=== PATIENT | male | born 1935 | race Caucasian/White ===

== ENCOUNTER 2019-07-06 10:53 | Day surgery (SDC) | payer MEDICARE, OTHER ==
[2019-07-06] MEDS ORDERED: SODIUM CHLORIDE 0.9% 1,000 ML IV ONE (11:14)
[2019-07-06] MEDS ORDERED: ALPRAZolam 0.25 MG TAB ONE (11:31)
[2019-07-06] MEDS ORDERED: ASPIRIN 81 MG ONE (11:31)
[2019-07-06] MEDS ORDERED: ASPIRIN 81 MG PO ONE (11:40)
[2019-07-06 11:41] LABS: HGB 13.5 gm/dL (13.0-17.5); MCH 31.1 pg (25.0-35.0); MCHC 33.8 g/dL (31.0-37.0); MCV 92.2 fL (80.0-100.0); Mean Platelet Volume 8.1; Platelet Count 123 k/uL (150-450); RBC 4.34 m/uL (4.30-5.90); RDW 15.6 % (11.5-15.5); WBC 6.2 k/uL (3.8-10.6)
[2019-07-06] MEDS ORDERED: ASPIRIN 325 MG TAB PO STA (11:41)
[2019-07-06] MEDS ORDERED: NITROGLYCERIN SL TABS 0.4 MG TAB SUBLINGUAL PRN ×2 (11:41→15:49)
[2019-07-06] MEDS ORDERED: SODIUM CHLORIDE 0.9% 1,000 ML in EMPTY BAG 1 BAG IV ONE (11:41)
[2019-07-06] MEDS ORDERED: ALPRAZolam 0.5 MG TAB PO PRN (11:41)
[2019-07-06] MEDS ORDERED: ALPRAZolam 0.25 MG TAB PO PRN (11:41)
[2019-07-06] MEDS ORDERED: ATORVASTATIN 80 MG TAB PO STA (11:41)
[2019-07-06 11:44] LABS: INR 0.9 (<1.2)
[2019-07-06 11:58] LABS: Potassium 4.8 mmol/L (3.5-5.1)
[2019-07-06] MEDS ORDERED: hydrALAZINE HCL 20 MG/ML 1 ML VIAL IVP STA (12:00)
[2019-07-06] MEDS ORDERED: hydrALAZINE HCL 20 MG/ML 1 ML VIAL IVP ONE (12:00)
[2019-07-06] MEDS ORDERED: LIDOCAINE URO-JET JELLY 2% 5 ML KIT ONE (12:26)
[2019-07-06] MEDS ORDERED: MIDAZOLAM (PF) 2 MG/2 ML VIAL IV ONE ×2 (14:35→15:13)
[2019-07-06] MEDS ORDERED: LIDOCAINE 1% INJ 10MG/ML (20 ML MDV) SQ ONE (14:35)
[2019-07-06] MEDS ORDERED: hydrALAZINE HCL 20 MG/ML 1 ML VIAL IV ONE (14:44)
[2019-07-06] MEDS ORDERED: BIVALIRUDIN 250 MG in SODIUM CHLORIDE 0.9% 36 ML IV ONE (14:53)
[2019-07-06] MEDS ORDERED: BIVALIRUDIN BOLUS 250 MG/50 ML IV ONE (14:53)
[2019-07-06] MEDS: NITROGLYCERIN 1000MCG/10ML SYRINGE INTRACORON ONE ×2 (15:00→15:36)
[2019-07-06] MEDS ORDERED: FUROSEMIDE 10 MG/ML 4 ML VIAL IV ONE (15:04)
[2019-07-06] MEDS ORDERED: MORPHINE SULFATE 4 MG/ML SYRINGE IV ONE (15:05)
[2019-07-06] MEDS ORDERED: HYDROmorphone 1 MG/ML 1 ML SYRINGE IVP ONE (15:05)
[2019-07-06] MEDS ORDERED: IOPAMIDOL-370 100ML BTL INJ ONE ×3 (15:05→15:45)
[2019-07-06] MEDS ORDERED: CLOPIDOGREL 75 MG TAB PO ONE (15:13)
[2019-07-06] MEDS ORDERED: ATROPINE SULFATE 0.1 MG/ML 10ML SYRINGE IV PRN (15:49)
[2019-07-06] MEDS ORDERED: RX INFO: IV CONTRAST WAS GIVEN 1 EACH MISC MISCELLANE PRN (15:49)
[2019-07-06] MEDS ORDERED: MAG HYDROX/AL HYDROX/SIMETH 30 ML CUP PO PRN (15:49)
[2019-07-06] MEDS ORDERED: ZOLPIDEM 5 MG TAB PO PRN (15:49)
[2019-07-06] MEDS ORDERED: SODIUM CHLORIDE 0.9% 1,000 ML IV SCH (16:00)
[2019-07-06] MEDS ORDERED: SECUKINUMAB SQ SCH (16:00)
[2019-07-06 17:35] VITALS: BMI 30.4
[2019-07-06 17:42] VITALS: RESP 18
[2019-07-06] MEDS: HYDROcodone/APAP 10-325MG 1 EACH TAB PO SCH (17:45)
[2019-07-06] MEDS: METOPROLOL TARTRATE 50 MG TAB PO SCH (20:37)
[2019-07-06] MEDS ORDERED: DOXAZOSIN 4 MG TAB PO SCH (21:00)
[2019-07-06] MEDS ORDERED: ATORVASTATIN 10 MG TAB PO SCH (21:00)
[2019-07-07] MEDS: HYDROcodone/APAP 10-325MG 1 EACH TAB PO SCH ×2 (00:47→08:26)
[2019-07-07 07:18] LABS: Basophils % (A) 0 %; Eosinophils # (A) 0.1 k/uL (0-0.7); Eosinophils % (A) 2 %; HCT 38.1 % (39.0-53.0); HGB 12.6 gm/dL (13.0-17.5); Lymphocytes # (A) 1.2 k/uL (1.0-4.8); Lymphocytes % (A) 16 %; MCH 30.6 pg (25.0-35.0); MCV 92.5 fL (80.0-100.0); Monocytes # (A) 0.8 k/uL (0-1.0); Monocytes % (A) 10 %; Neutrophils # (A) 5.1 k/uL (1.3-7.7); Neutrophils % (A) 70 %; Platelet Count 125 k/uL (150-450); RBC 4.12 m/uL (4.30-5.90); RDW 15.7 % (11.5-15.5); WBC 7.4 k/uL (3.8-10.6)
[2019-07-07 07:27] LABS: Calcium 8.6 mg/dL (8.4-10.2); Potassium 4.3 mmol/L (3.5-5.1)
[2019-07-07] MEDS ORDERED: PANTOPRAZOLE 40 MG TABLET PO SCH (07:30)
[2019-07-07 08:11] VITALS: BP 132/64; PULSE 64; TEMP 98.1
[2019-07-07] MEDS: METOPROLOL TARTRATE 50 MG TAB PO SCH (08:25)
[2019-07-07] MEDS ORDERED: CLOPIDOGREL 75 MG TAB PO SCH (09:00)
--- NOTE | 2019-07-07 09:13 | DS ---
DISCHARGE SUMMARY ADMISSION DATE: July 06, 2019. DISCHARGE DATE: July 07, 2019 BRIEF HISTORY: This is a pleasant 83-year-old gentleman who was experiencing symptoms of chest discomfort concerning for severe CAD. He is known to have CAD and prior stenting of the RCA. Yesterday, he underwent a heart catheterization and that revealed critical disease involving heavily calcified right coronary artery and critical disease involving the left circumflex coronary artery. He underwent successful stenting of the distal, mid, and proximal RCA with very complex procedure and by the end with an excellent angiographic results and reduction of stenosis from 99% to 0%. The procedure was performed from the right groin which is now soft and nontender and without any bruises. The patient is going to be discharged on dual anti-platelet therapy and I will follow up with the patient next week at [facility]. MMMATEUS / TWYLAN: [id number] /
--- NOTE | 2019-07-07 09:55 | CC ---
CARDIAC CATHETERIZATION REPORT DATE OF SERVICE: July 06, 2019 PERFORMING PHYSICIAN: Thierry Capps MD PROCEDURE PERFORMED: 1. Selective right and left coronary angiogram. 2. Left heart catheterization. 3. Successful stenting of the mid right coronary artery using 2.0 x 15 mm Sundar drug- eluting stent which was postdilated using 3.5 mm balloon with an excellent angiographic results and reduction of stenosis from 90% to 0%. 4. Successful stenting of the proximal right coronary artery using 3.0 x 23 mm Xience LISA with an excellent angiographic results and reduction of stenosis from 90% to 0%. 5. Successful stenting of the distal RCA using 3.5 x 8 mm Xience LISA with an excellent angiographic results and reduction of stenosis from 70% to 0%. INDICATIONS: This is an 83-year-old gentleman with history of coronary artery disease and prior stenting of the RCA, who was experiencing symptoms of chest discomfort concerning for severe underlying coronary artery disease. He was brought yesterday to undergo a heart catheterization and possible percutaneous coronary intervention. APPROACH: Right common femoral artery. COMPLICATION: None. LEVEL OF SEDATION: Moderate with sedation length of 73 minutes. PROCEDURE DESCRIPTION: After obtaining an informed consent, the patient was brought to cardiac [facility]. The right common femoral artery was cannulated using micropuncture technique. The micropuncture wire passed easily. Then I placed a 6-Turkish sheath. I did selective right and left coronary angiogram using JR4 and JL4 catheters. Subsequently I did intervene on the right coronary artery. Please see a separate paragraph for that. SELECTIVE CORONARY ANGIOGRAM: 1. The right coronary artery is a large caliber vessel and it is a dominant vessel. The proximal RCA has disease appeared to be in the range of 70% to 80%. The mid RCA has a critical lesion appeared to be in the range of 99.9%. The RCA distally is occluded and fills by collateral from the left coronary system. 2. The left main is angiographically normal. It bifurcates into left circumflex, which is nondominant circ and left anterior descending artery. 3. The left circumflex is a large caliber vessel it is a nondominant vessel. The proximal to mid circumflex has a lesion appeared to be in the range of 99%. The circ gives rise into an OM branch which seems to be normal. 4. The LAD: The LAD is a large caliber vessel and the LAD has mild diffuse disease only. The LAD gives rise into multiple small diagonal branches. The LAD gives collateral to the right coronary artery. PCI OF THE RCA: Anticoagulation was initiated using Angiomax. Using All Right guide, I engaged the right coronary artery. I did wire the RCA using a long whisper wire. I did balloon angioplasty of the RCA using 2.5 x 15 mm balloon. I attempted after that advancing 3.0 mm Xience LISA but the stent will not make the turn. At that point, I did wire the RCA using a cristal wire with a run-through wire. With that, I was unable to advance the stent. At that point, I dilated the RCA again using this time 3.5 mm balloon. Attempting advancing the stent was unsuccessful and at that point I was successful in advancing 2.0 x 15 mm Sundar drug-eluting stent where the stent was positioned in the mid RCA under fluoroscopy guidance and deployed after the cristal wire was withdrawn out. After that, in the proximal RCA, was able to advance the 3.0 x 28 mm Xience LISA where the stent again was positioned under fluoroscopy guidance and deployed under its nominal pressure. Subsequently, and in the mid RCA and distal RCA, there was a haziness with possible plaque rupture there and because of that, I decided to cover that with a stent so I placed 3.5 x 8 mm Xience ILSA. Finally I post dilated the 3 stents using 3.5 mm NC balloon. The final angiogram showed good angiographic results and the procedure was completed without any complication. CONCLUSION: 1. Critical disease involving the mid RCA. 2. Critical disease involving the proximal to mid LCX. 3. Mild disease involving the LAD system. 4. Successful stenting of the distal, mid, and proximal RCA as described above. POSTPROCEDURE MANAGEMENT: 1. Dual anti-platelet therapy. Unfortunately, the patient is taking Coumadin and because of that, he will be on Plavix as well as Coumadin. 2. Aggressive cholesterol control. 3. PCI of the left circumflex to be done in the next 2-4 weeks. MMODL / IJN: [id number] /
== END 2019-07-07 11:18 | disposition home or self-care (01) ==
LOC: CATHCVL 10:53 → 3SCARD 16:21 → CATHCVL 07-07 11:18
PROVIDERS: ATTEND Internal Medicine Interventional Cardiology
DX: I25.119 Atherosclerotic heart disease of native coronary artery with unspecified angina pectoris (principal); I25.84 Coronary atherosclerosis due to calcified coronary lesion; Z95.5 Presence of coronary angioplasty implant and graft; Z95.1 Presence of aortocoronary bypass graft; I10 Essential (primary) hypertension; E78.5 Hyperlipidemia, unspecified; I48.0 Paroxysmal atrial fibrillation; E11.9 Type 2 diabetes mellitus without complications; I73.9 Peripheral vascular disease, unspecified; Z95.820 Peripheral vascular angioplasty status with implants and grafts; F17.200 Nicotine dependence, unspecified, uncomplicated; Z82.49 Family history of ischemic heart disease and other diseases of the circulatory system; Z79.01 Long term (current) use of anticoagulants; Z79.02 Long term (current) use of antithrombotics/antiplatelets; Z79.82 Long term (current) use of aspirin; Z79.899 Other long term (current) drug therapy; Z88.0 Allergy status to penicillin
CPT/HCPCS: 93454; 80048 ×2; 85025; 85027; 85610; C9600; C1769 ×5; C1887; C1725 ×3; C1894 ×2; C1874 ×2; J2270; J0360; J1940; J2001; J1170; J0583; Q9967; J2250

== ENCOUNTER 2019-08-03 09:04 | Day surgery (SDC) | payer MEDICARE, OTHER ==
[2019-07-27 11:05] VITALS: BMI 29.5
[~2019-08-03 09:04] MED LIST: ALPRAZolam 0.25 MG TAB PO PRN; ALPRAZolam 0.5 MG TAB PO PRN; ASPIRIN 325 MG TAB PO ONE; ATORVASTATIN 80 MG TAB PO ONE; NITROGLYCERIN SL TABS 0.4 MG TAB SUBLINGUAL PRN; SODIUM CHLORIDE 0.9% 1,000 ML in EMPTY BAG 1 BAG IV ONE
[2019-08-03] MEDS ORDERED: LIDOCAINE 1% INJ 10MG/ML (20 ML MDV) ONE (09:32)
[2019-08-03] MEDS ORDERED: ASPIRIN 81 MG ONE (09:42)
[2019-08-03] MEDS ORDERED: hydrALAZINE HCL 20 MG/ML 1 ML VIAL ONE (09:59)
[2019-08-03] MEDS ORDERED: ENALAPRILAT 1.25 MG/ML 1 ML VIAL ONE (09:59)
[2019-08-03 10:06] LABS: Calcium 8.9 mg/dL (8.4-10.2); Potassium 4.9 mmol/L (3.5-5.1)
[2019-08-03 10:11] LABS: Basophils % (A) 1 %; Eosinophils # (A) 0.3 k/uL (0-0.7); Eosinophils % (A) 5 %; HCT 39.9 % (39.0-53.0); HGB 13.5 gm/dL (13.0-17.5); Lymphocytes # (A) 1.4 k/uL (1.0-4.8); Lymphocytes % (A) 24 %; MCH 31.1 pg (25.0-35.0); MCHC 33.7 g/dL (31.0-37.0); MCV 92.2 fL (80.0-100.0); Mean Platelet Volume 7.9; Monocytes # (A) 0.8 k/uL (0-1.0); Monocytes % (A) 13 %; Neutrophils # (A) 3.2 k/uL (1.3-7.7); Neutrophils % (A) 54 %; Platelet Count 140 k/uL (150-450); RBC 4.33 m/uL (4.30-5.90); RDW 15.2 % (11.5-15.5); WBC 5.8 k/uL (3.8-10.6)
[2019-08-03 10:13] LABS: Prothrombin Time 10.7 sec (9.0-12.0)
[2019-08-03] MEDS ORDERED: MIDAZOLAM (PF) 2 MG/2 ML VIAL IVP ONE (11:19)
[2019-08-03] MEDS ORDERED: LIDOCAINE 1% INJ 10MG/ML (20 ML MDV) SQ ONE (11:21)
[2019-08-03] MEDS ORDERED: BIVALIRUDIN BOLUS 250 MG/50 ML IV ONE (11:30)
[2019-08-03] MEDS ORDERED: BIVALIRUDIN 250 MG in SODIUM CHLORIDE 0.9% 50 ML IV ONE (11:31)
[2019-08-03] MEDS: NITROGLYCERIN 1000MCG/10ML SYRINGE INTRACORON ONE ×2 (11:36→11:41)
[2019-08-03] MEDS ORDERED: IOPAMIDOL-370 125ML BTL INJ ONE (11:44)
[2019-08-03] MEDS ORDERED: IOPAMIDOL-250 100ML BTL INTRAARTER ONE (11:52)
[2019-08-03] MEDS ORDERED: CLOPIDOGREL 75 MG TAB PO ONE (11:55)
[2019-08-03] MEDS ORDERED: ATROPINE SULFATE 0.1 MG/ML 10ML SYRINGE IV PRN (11:58)
[2019-08-03] MEDS ORDERED: ZOLPIDEM 5 MG TAB PO PRN (11:58)
[2019-08-03] MEDS ORDERED: NITROGLYCERIN SL TABS 0.4 MG TAB SUBLINGUAL PRN (11:58)
[2019-08-03] MEDS ORDERED: RX INFO: IV CONTRAST WAS GIVEN 1 EACH MISC MISCELLANE PRN (11:58)
[2019-08-03] MEDS ORDERED: MAG HYDROX/AL HYDROX/SIMETH 30 ML CUP PO PRN (11:58)
[2019-08-03] MEDS ORDERED: SODIUM CHLORIDE 0.9% 1,000 ML IV SCH (12:00)
--- NOTE | 2019-08-03 14:13 | IR ---
Fluoroscopy HISTORY: Claudication, peripheral vascular occlusive disease 0.6 minutes fluoroscopy time supplied to the referring clinician. 116 intraoperative C-arm images do cument the procedure. See dictated report from cardiology.
--- NOTE | 2019-08-03 14:36 | PTCA ---
PERCUTANEOUSTRANS CORORONARY ANGIOGRAPHY DATE OF SERVICE: August 03, 2019 PERFORMING PHYSICIAN: Thierry Capps MD. PROCEDURE PERFORMED: Successful stenting of the mid left circumflex coronary artery using 3.5 x 15 mm Xience LISA with an excellent angiographic results and reduction of stenosis from 95% to 0%. INDICATION: This is an 83-year-old gentleman with history of CAD who underwent a heart catheterization recently and that revealed critical 2 vessel CAD involving the RCA and left circumflex. He underwent successful stenting of the RCA and was brought today to undergo stenting of the left circumflex. APPROACH: Right common femoral artery. COMPLICATION: None. LEVEL OF SEDATION: Moderate with sedation length of 29 minutes. PROCEDURE DESCRIPTION: After obtaining an informed consent, the patient was brought to the cardiac laboratory associate. The right common femoral artery was cannulated using micropuncture technique and the micropuncture wire passed easily then I placed a 6-Icelandic sheath in the right common femoral artery. After that, anticoagulation was initiated using Angiomax. Subsequently, I did engage the left main using XB guide. I did wire the left circumflex using a whisper wire. I did PTCA ballooning using 2.5 x 12 mm balloon before I deployed 3.5 x 15 mm Xience LISA where the stent was positioned under fluoroscopy guidance and deployed under its nominal pressure, which was 12 atmospheres for 20 seconds. The following angiogram showed excellent angiographic result and the procedure was completed without any complication. POSTPROCEDURE MANAGEMENT: 1. Dual antiplatelet therapy. 2. Risk factors modifications. 3. Follow up with the patient. MMODL / TWYLAN: [id number] /
[2019-08-03] MEDS: METOPROLOL TARTRATE 50 MG TAB PO SCH (20:17)
[2019-08-03] MEDS ORDERED: LOSARTAN 25 MG TAB PO SCH (21:00)
[2019-08-03] MEDS ORDERED: DOXAZOSIN 4 MG TAB PO SCH (21:00)
--- NOTE | 2019-08-03 22:39 | AN ---
ANGIOGRAPHY REPORT DATE OF SERVICE: August 03, 2019 PERFORMING PHYSICIAN: Thierry Capps MD. PROCEDURE PERFORMED: 1. An abdominal aortogram. 2. Bilateral lower extremities runoff. INDICATION: This is an 83-year-old gentleman with history of PAD and prior stenting of both iliacs as well as history of stenting of the right SFA, was experiencing bilateral lower extremities intermittent claudication. He was brought today to undergo an aortogram with runoff. APPROACH: Right common femoral artery. COMPLICATION: None. LEVEL OF SEDATION: Moderate with sedation length of 10 minutes. PROCEDURE DESCRIPTION: Please refer to the diagnostic heart catheterization procedure description. SELECTIVE PERIPHERAL ANGIOGRAM: 1. The aorta appeared to have mild disease only but distally appeared to be aneurysmal. The aneurysm is not large. Bifurcates into right and left common iliac arteries. 2. Common iliac arteries: Both are stented and the stents are patent. 3. External iliac arteries: The right external iliac artery is stented and the stent is patent and the left external iliac artery appeared to be patent. 4. Internal iliac arteries: The right internal iliac artery was not opacified and the left internal iliac artery appeared to be patent. 5. Common femoral artery: Both appear to have mild disease only. 6. Profunda: Both are patent. 7. SFA: The right SFA is stented and the stent is patent. Otherwise, the SFA has mild to moderate diffuse disease only. 8. Popliteal: Both popliteals appeared to be angiographically normal. 9. Below the knee: There is only one vessel runoff below the knee with peroneal. CONCLUSION: 1. 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 2. Patent stent in both iliac arteries. 3. Patent stent in the right SFA. 4. Severe eilqs-shz-ynwu disease with only 1 vessel runoff with peroneal. POSTPROCEDURE MANAGEMENT: Giving the above anatomy and the absence of any critical limb ischemia, I do recommend maximized medical treatment. We will follow up with the patient. MMODL / IJN: [id number] /
[2019-08-04 06:49] LABS: Basophils % (A) 1 %; Eosinophils # (A) 0.2 k/uL (0-0.7); Eosinophils % (A) 4 %; HCT 37.4 % (39.0-53.0); HGB 12.3 gm/dL (13.0-17.5); Lymphocytes % (A) 18 %; MCH 31.1 pg (25.0-35.0); MCHC 32.9 g/dL (31.0-37.0); MCV 94.5 fL (80.0-100.0); Mean Platelet Volume 7.6; Monocytes # (A) 0.7 k/uL (0-1.0); Monocytes % (A) 12 %; Neutrophils # (A) 3.6 k/uL (1.3-7.7); Neutrophils % (A) 63 %; Platelet Count 128 k/uL (150-450); RBC 3.95 m/uL (4.30-5.90); RDW 14.4 % (11.5-15.5); WBC 5.8 k/uL (3.8-10.6)
[2019-08-04] MEDS ORDERED: PANTOPRAZOLE 40 MG TABLET PO SCH (07:30)
[2019-08-04 07:33] LABS: Calcium 8.4 mg/dL (8.4-10.2); Potassium 4.3 mmol/L (3.5-5.1)
--- NOTE | 2019-08-04 08:07 | DS ---
DISCHARGE SUMMARY ADMISSION DATE: August 03, 2019 DISCHARGE DATE: August 04, 2019 BRIEF HISTORY: This is an 83-year-old gentleman who was admitted to the hospital yesterday and underwent successful angioplasty and stenting of the left circumflex with an excellent angiographic results and without any complication. The right groin is soft and nontender and without any bruises. The patient is going to be discharged home on dual anti-platelet therapy along with statin and I will follow up with the patient next week in the office. MMMATEUS / WARD: [id number] /
[2019-08-04] MEDS: METOPROLOL TARTRATE 50 MG TAB PO SCH (08:23)
[2019-08-04 08:27] VITALS: BP 172/78; PULSE 68; RESP 18; TEMP 97.8
[2019-08-04] MEDS ORDERED: ASPIRIN 81 MG PO SCH (09:00)
[2019-08-04] MEDS ORDERED: ATORVASTATIN 10 MG TAB PO SCH (21:00)
[2019-08-04] MEDS ORDERED: CLOPIDOGREL 75 MG TAB PO SCH (21:00)
[2019-08-17] MEDS ORDERED: SECUKINUMAB SQ SCH (09:00)
== END 2019-08-04 09:41 | disposition home or self-care (01) ==
LOC: CATHCVL 09:04 → 3SCARD 11:54 → CATHCVL 08-04 09:41
PROVIDERS: ATTEND Internal Medicine Interventional Cardiology
DX: I70.213 Atherosclerosis of native arteries of extremities with intermittent claudication, bilateral legs (principal); I71.9 Aortic aneurysm of unspecified site, without rupture; I25.10 Atherosclerotic heart disease of native coronary artery without angina pectoris; I48.2 Chronic atrial fibrillation; I10 Essential (primary) hypertension; E11.9 Type 2 diabetes mellitus without complications; E78.5 Hyperlipidemia, unspecified; Z79.02 Long term (current) use of antithrombotics/antiplatelets; Z79.82 Long term (current) use of aspirin; Z79.01 Long term (current) use of anticoagulants; Z79.899 Other long term (current) drug therapy; Z88.0 Allergy status to penicillin; Z72.0 Tobacco use; Z95.820 Peripheral vascular angioplasty status with implants and grafts; Z95.5 Presence of coronary angioplasty implant and graft; Z82.49 Family history of ischemic heart disease and other diseases of the circulatory system
CPT/HCPCS: 36200; 75625; 75716; 80048 ×2; 85025 ×2; 85610; C9600; C1769 ×3; C1725; C1887; C1894; C1874; J0360; J2001; J0583; Q9966; Q9967; J2250